=== PATIENT | male | born 1970 | race Caucasian/White ===

== ENCOUNTER → 2018-09-24 07:19 | Day surgery (SDC) | payer OTHER ==
--- NOTE | 2018-09-10 06:52 | HP ---
AMENDED REPORT NOW INCLUDES COSIGNER DESIGNATION CC: Dr. Myke Aleman * ADMISSION HISTORY AND PHYSICAL: DATE OF ADMISSION: 09/24/18 ATTENDING SURGEON: Dr. David Samson.* (DICTATED BY KENTRELL MOSES) CHIEF COMPLAINT: Umbilical hernia. HISTORY OF PRESENT ILLNESS: This is a generally healthy 47-year-old (soon to be 48- year-old) male who, beginning this past spring and summer, had noted pain across the lower midabdomen that was particularly more noticeable with physical activity. He did not have any swelling and bulge at that time or since , but he has had persistent and increasing pain, especially in relation to physical activity. A CT scan was apparently done in February of this year showing a small fat containing umbilical hernia. This scan was reviewed by Dr. Samson , who saw the patient on 07/04/18. There were no other significant findings on the CT. Dr. Samson's exam confirmed the presence of a tender, incompletely reducible hernia at the umbilicus. No other hernias were noted. No other masses. Dr. Samson discussed with the patient the indications for surgery as well as the risks, benefits, and alternatives. The patient would like to proceed as scheduled with open repair of umbilical hernia with mesh. 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 He was on anticoagulation for period of time with no subsequent problems. PAST SURGICAL HISTORY: His only previous surgeries had been bilateral tympanostomy tubes and tonsillectomy. CURRENT MEDICATIONS: None. DRUG ALLERGIES: None. FAMILY HISTORY: Negative for thromboembolic disease, bleeding disorders or anesthesia problems. SOCIAL HISTORY: The patient is . He works in IT at [employer]. He also is fairly active outside of work. He denied use of tobacco. He drinks between 2 to 3 drinks per week or less and denies any recreational drug use. REVIEW OF SYSTEMS: General: No recent constitutional symptoms or acute illnesses. Skin: He is seeing regularly for skin checks by his PCP because of family history of melanoma. No recent lesions of concern. HEENT: No problems reported. No change in vision. Cardiovascular: No chest pain, palpitations or history of heart murmur. Respiratory: No history of asthma, chronic cough or shortness of breath. GI: No problems reported. : No problems reported. Endocrine: No diabetes or thyroid dysfunction. Remainder of review of systems is negative. PHYSICAL EXAMINATION GENERAL: Well-nourished, somewhat obese male, in no acute distress. VITAL SIGNS: Height 72 inches, weight 248 pounds. Temperature 98.1, blood pressure 140/80, pulse 76, respirations 16. SKIN: Warm and dry. No suspicious rashes or lesions noted. HEENT: Pupils are equal, round, and reactive. EOMs intact. No conjunctival pallor. Oropharynx: Teeth in good repair. No intraoral lesions. NECK: No lymphadenopathy, thyromegaly or masses. LUNGS: Clear to auscultation. No wheezes. HEART: Regular rate and rhythm. No murmur noted. ABDOMEN: Soft, nontender to palpation. No palpable masses or organomegaly with the exception of tender umbilical hernia per Dr. Samson's exam, which I did not repeat today. No palpable inguinal hernias on recent exam, which I did not repeat today. GENITALIA: Otherwise, not done. RECTAL: Otherwise, not done. BACK: No spinous process or CVA tenderness. EXTREMITIES: He does have some chronic edema of the left lower extremity with trace pitting. No significant edema on the right. NEUROLOGIC: Grossly intact. IMPRESSION: Umbilical hernia. PLAN/RECOMMENDATIONS: Open repair of umbilical hernia with mesh. KENTRELL MOSES [id number]/[facility] #: [id number] MTDD
[~2018-09-24 07:19] MED LIST: Acetaminophen TAB* 325 MG ONE; Acetaminophen TAB* 325 MG PO ONE; Buffered Lidocaine 0.9% SYRIN* 5 ML/SYR SYRINGE INTRADERM ONE; Buffered Lidocaine 0.9% SYRIN* 5 ML/SYR SYRINGE ONE; Bupivacaine 0.5% W/EPI SDV* 30 ML VIAL ONE; Dexamethasone IV* 4 MG/ML 1 ML (4 MG) ONE; DiMENhydriNATE IV* 50 MG/ML VIAL IV PUSH PRN; Famotidine IV* 10 MG/ML 2 ML (20 mg) ONE; Gabapentin CAP(*) 300 MG ONE; Gabapentin CAP(*) 300 MG PO ONE; HYDROcodone/ACETAMIN 5-325 MG* 1 TAB PO PRN; KETAMINE HCL* 50 MG/ML 10 ML VIAL ONE; Ketorolac INJ* 30 MG/ML 1 ML VIAL ONE; Lidocaine 1% INJ* 10 MG/ML 30 ML SDV ONE; Midazolam* 1 MG/ML 2 ML VIAL (2 MG) ONE; Naloxone* 0.4 MG/ML 1 ML VIAL IV PRN; Ondansetron INJ* 2 MG/ML VIAL IV PRN; Ondansetron INJ* 2 MG/ML VIAL ONE; PROCHLORPERAZINE INJ 5 MG/ML 2 ML VIAL IV PRN; Propofol* 10 MG/ML 20 ML BTL ONE; ceFAZolin 2 GM PREMIX in ORs 2 GM/50 ML BAG IVPB ONE; fentaNYL* 50 MCG/ML 2 ML VIAL (100 MCG VIAL) IV PRN; fentaNYL* 50 MCG/ML 2 ML VIAL (100 MCG VIAL) ONE
[2018-09-24 12:40] VITALS: BP 144/91
--- NOTE | 2018-09-25 19:51 | OP ---
DATE OF OPERATION: 09/24/18 - [facility] DATE OF : 68 SURGEON: David Samson MD. ADMINISTRATION PHYSICIAN: Sonia Ley NP. ANESTHESIOLOGIST: Dr. Shi. ANESTHESIA: General with local. PRE-OP DIAGNOSIS: Umbilical hernia. POST-OP DIAGNOSIS: Umbilical hernia. OPERATIVE PROCEDURE: Open repair with a 4.3 cm barbed dual-coated mesh. SPECIMENS: None. WOUND CLASSIFICATION: I. DRAINS: None. COMPLICATIONS: None. DESCRIPTION OF PROCEDURE: Written informed consent was obtained. The abdomen was marked with indelible ink and preoperative antibiotics were administered. The patient was taken to the operating room, placed in the supine position. Sequential compression devices and warming blanket were applied. The abdomen was prepped and draped in usual sterile fashion. Time-out verification was completed. A 1% lidocaine mixed with 0.25% Marcaine was infiltrated extensively around the umbilicus. A small semicircular incision was made inferior to the umbilical crease and down to the midline fascia. The overlying umbilical skin was then excised off of fat containing umbilical hernia, which was about 1.5 cm in diameter. The fascia surrounding this appeared to be healthy and I did not enter the peritoneal cavity. There was no bowel involvement. The preperitoneal space was then developed using sharp and blunt dissection and a 4.3 cm circular mesh was then placed and sutured to the overlying fascia with 2 separate 0 Vicryl sutures placed in a horizontal mattress fashion. Mesh sat nicely without wrinkling and generous overlap of the fascial edges. The inupiat fascia was then closed transversely with 3 separate 0 Ethibond interrupted sutures. Hemostasis was assured. Additional Marcaine was then infiltrated. The subcutaneous tissue and skin were closed with 3-0 and 4-0 Vicryl suture. Steri-Strips and sterile dressings were applied. The patient tolerated the procedure well and was taken to the recovery room in stable condition. [id number]/[facility] #: [id number] [facility]
== END | disposition home or self-care (01) ==
LOC: OR 07:19
PROVIDERS: ATTEND Surgery
DX: K42.9 Umbilical hernia without obstruction or gangrene (principal); Z86.718 Personal history of other venous thrombosis and embolism; Z79.01 Long term (current) use of anticoagulants; Z86.711 Personal history of pulmonary embolism
CPT/HCPCS: A9270-GY; C1781; J0690; J1100; J1885; J2250; J2405; J2704; J3010